=== PATIENT | male | born 1965 | race Caucasian/White ===

== ENCOUNTER 2017-06-17 07:10 | Emergency (ER) | payer SELFPAY ==
[~2017-06-17] VITALS: Ht 172.7 cm; Wt 102.0 kg
--- NOTE | ~2017-06-17 | CR213 ---
[facility] A Service of [facility] & [facility] RADIOLOGY TEXT RESULTS PATIENT: OLVIN NAPOLES LOCATION: SED : 63 UNIT #: [id number] AGE: [address]: Abhinav Flores MD SEX: M ORDER DR: [id number] [place] [id number] E MR#: [id number] Acc #: [id number] NAME: OLVIN NAPOLES : 1965 SEX: M STUDY DATE/TIME: 06/17/2017 7:33 UNIT: SED ROOM: STUDY DESCRIPTION: CR Ribs Unilateral 2 View Rt Attending Physician: Abhinav Flores M.D. Ordering Physician: Abhinav Flores M.D. Primary Care Physician: Yves Padilla M.D. MEDICAL IMAGING REPORT This report is preliminary unless electronic signature is present. EXAM Right rib series, 06/17/2017 HISTORY Pain. Mid level rib pain. 2 months duration. Cough. Rib pain started last night. Bronchitis. Thinks broke a rib on right side. FINDINGS AP and oblique radiographs of the right ribs are presented. No fracture. No acute appearing bony abnormality. Visualized cardiomediastinal contours unremarkable. Visualized pulmonary parenchyma clear. Visualized abnormal unremarkable. Dictated by... Milton Gonzalez M.D. THIS IS AN ELECTRONICALLY VERIFIED REPORT Milton Gonzalez M.D. at 06/21/2017 8:01 AM Jo TD: 06/17/2017 09:00 JOB #: [id number] MEDICAL IMAGING REPORT Page 1 of 1
--- NOTE | ~2017-06-17 | CR63 ---
[facility]. [facility] A Service of [facility] & [facility] RADIOLOGY TEXT RESULTS PATIENT: OLVIN NAPOLES LOCATION: SED : 63 UNIT #: [id number] AGE: [address]: Abhinav Flores MD SEX: M ORDER DR: [id number] [place] [id number] E MR#: [id number] Acc #: [id number] NAME: OLVIN NAPOLES : 1965 SEX: M STUDY DATE/TIME: 06/17/2017 7:33 UNIT: SED ROOM: STUDY DESCRIPTION: CR Chest 2 View Attending Physician: Abhinav Flores M.D. Ordering Physician: Abhinav Flores M.D. Primary Care Physician: Yves Padilla M.D. MEDICAL IMAGING REPORT This report is preliminary unless electronic signature is present. EXAM Two views chest, 06/17/2017 HISTORY Cough. Two months' duration. Rib pain started last night, bronchitis, thinks broke a rib on right side. FINDINGS PA and lateral radiographs of the chest are presented. Comparison 09/20/2016. No fracture. There are mild degenerative changes in the spine. The heart is borderline enlarged. Similar appearance on prior study. The lungs are well inflated. There is no evidence of acute pulmonary disease, pleural effusion or pneumothorax. No suspicious nodule. Dictated by... Milton Gonzalez M.D. THIS IS AN ELECTRONICALLY VERIFIED REPORT Milton Gonzlaez M.D. at 06/21/2017 8:01 AM BLAKE/cyndi TD: 06/17/2017 09:05 JOB #: [id number] MEDICAL IMAGING REPORT Page 1 of 1
[~2017-06-17 07:10] MED LIST: ALBUTEROL17 GM INH; AMLODIPINE BESYL5 MG PO; BACTRIM DS TABL1 TA1 PO; BAYER CHEWABLE81 MG PO; BENZONATATE PO; CHOLESTEROL1 GM; FISH OIL 1,001000 MG PO; FLEXERIL PO; LIPITOR40 MG PO; LORTAB 7.5-5001 TAB PO; LOSARTAN POTASS50 MG PO; MEDROL PO; MUPIROCIN0.9 GM EXT; NORVASC10 MG PO; PREDNISONE PO; RELAFEN500 MG PO; TRAMADOL HCL50 M1 PO; VICODIN 5/500 T1 TAB PO; ZYRTEC10 M2 PO
== END 2017-06-17 08:43 | disposition home or self-care (01) ==
LOC: SED 07:10
DX: J40 Bronchitis, not specified as acute or chronic (principal); J44.9 Chronic obstructive pulmonary disease, unspecified; I10 Essential (primary) hypertension; Z87.891 Personal history of nicotine dependence; Z88.5 Allergy status to narcotic agent; Z79.899 Other long term (current) drug therapy
CPT/HCPCS: 71020; 71100; 99283